=== PATIENT | male | born 2000 | race Caucasian/White ===

== ENCOUNTER 2021-09-22 16:29 | Emergency (ER) | payer SELFPAY ==
[~2021-09-22] VITALS: Ht 180.3 cm; Wt 126.0 kg
[2021-09-22 16:29] VITALS: BP 132/86
[2021-09-22] MEDS ORDERED: DEXAMETHASONE SOD PHOS 10 MG/ML VIAL. PO ONE (16:45)
[2021-09-22] MEDS ORDERED: ALBUTEROL SULFATE 8GM INHALER. INH ONE (16:45)
[2021-09-22] MEDS ORDERED: ALBUTEROL SULFATE 2.5 MG/3 ML NEBU. NEB ONE (16:45)
--- NOTE | 2021-09-22 16:46 | PHYS DOC ---
General Adult EDM: Chief Complaint: ASTHMA HPI: HPI: 20-year-old male presents with concern for asthma exacerbation. Patient started having some wheezing yesterday to get worse today. He ran out of his albuterol inhaler. He has mild intermittent asthma and only uses his albuterol inhaler sporadically. He has certain times of year where he uses it more than others. This tends to be 1 of those seasons. He denies fever or chills. He has no other complaints this time. Review of Systems: Review of Systems: Constitutional: Denies fever or chills Eyes: Denies change in visual acuity HENT: Denies nasal congestion or sore throat Respiratory: Wheezing, shortness of breath Cardiovascular: Denies chest pain or edema GI: Denies abdominal pain, nausea, vomiting, bloody stools or diarrhea : Denies dysuria Musculoskeletal: Denies back pain or joint pain Integument: Denies rash Neurologic: Denies headache, focal weakness or sensory changes Endocrine: Denies polyuria or polydipsia Lymphatic: Denies swollen glands Psychiatric: Denies depression or anxiety Allergies: Allergies: Allergies Coded Allergies Type Severity Reaction Last Updated Verified No Known Drug Allergies 09/22/21 No Physical Exam: PE: Constitutional: Well developed, well nourished, obese, no acute distress, non- toxic appearance. [] HENT: Normocephalic, atraumatic, bilateral external ears normal, oropharynx moist, no oral exudates, nose normal. [] Eyes: PERRLA, EOMI, conjunctiva normal, no discharge. [] Neck: Normal range of motion, no tenderness, supple, no stridor. [] Cardiovascular:Heart rate regular rhythm, no murmur [] Lungs & Thorax: Bilateral breath sounds with diffuse expiratory wheezing [] Abdomen: Bowel sounds normal, soft, no tenderness, no masses, no pulsatile ma sses. [] Skin: Warm, dry, no erythema, no rash. [] Back: No tenderness, no CVA tenderness. [] Extremities: No tenderness, no cyanosis, no clubbing, ROM intact, no edema. [] Neurologic: Alert and oriented X 3, normal motor function, normal sensory function, no focal deficits noted. [] Psychologic: Affect normal, judgement normal, mood normal. [] Current Patient Data: Vital Signs: Vital Signs Date Time Temp Pulse Resp B/P (MAP) Pulse Ox O2 Delivery O2 Flow Rate FiO2 09/22/21 16:29 81 20 132/86 (101) 97 Room Air EKG: EKG: [] Radiology/Procedures: Radiology/Procedures: [] Heart Score: C/O Chest Pain: N/A Risk Factors: Risk Factors: DM, Current or recent (<one month) smoker, HTN, HLP, family history of CAD, obesity. Risk Scores: Score 0 - 3: 2.5% MACE over next 6 weeks - Discharge Home Score 4 - 6: 20.3% MACE over next 6 weeks - Admit for Clinical Observation Score 7 - 10: 72.7% MACE over next 6 weeks - Early Invasive Strategies Course & Med Decision Making: Course & Med Decision Making Pertinent Labs and Imaging studies reviewed. (See chart for details) The patient has a nebulizer albuterol treatment in the ER as well as 10 mg of Decadron p.o. His lungs are completely clear at this time. I will discharge him with an albuterol MDI with spacer. I will also give him a prescription for the same. I do not believe he needs further steroid dosing. He is stable for discharge at this time. [] Dragon Disclaimer: Dragon Disclaimer: This electronic medical record was generated, in whole or in part, using a voice recognition dictation system. Departure Departure: Impression: Primary Impression: Asthma exacerbation Qualified Codes: J45.21 - Mild intermittent asthma with (acute) exacerbation Disposition: HOME / SELF CARE / HOMELESS Condition: STABLE Referrals: IVY PACK (PCP) Patient Instructions: Asthma, Adult, [id number] Scripts Albuterol Sulfate (VENTOLIN HFA INHALER) 18 Gm Hfa.aer.ad 1 PUFF IH PRN Q4HRS PRN for FOR ASTHMA, #1 INHALER 0 Refills Generic substitution of albuterol sulfate MDI is authorized. Prov: AARON DUNN DO 09/22/21 AARON DUNN DO Sep 22, 2021 16:46
[2021-09-22] MEDS ORDERED: DEXAMETHASONE 4 MG TABLET PO ONE (17:00)
[2021-09-22] MEDS ORDERED: ALBU2.5V8 IH (17:32)
== END 2021-09-22 17:36 | disposition home or self-care (01) ==
LOC: ER 16:29
DX: J45.21 Mild intermittent asthma with (acute) exacerbation (principal)
CPT/HCPCS: 94640; 99284; J1100; J7613; 94664

== ENCOUNTER 2021-10-19 02:59 | Emergency (ER) | payer SELFPAY ==
[~2021-10-19] VITALS: Ht 177.8 cm; Wt 127.3 kg
[~2021-10-19 02:59] MED LIST: ALBU2.5V8 IH
[2021-10-19 03:04] VITALS: BP 136/76
--- NOTE | 2021-10-19 03:06 | PHYS DOC ---
Past History Past Medical History: Asthma Past Surgical History: No Surgical History Alcohol Use: Occasionally Adult General Chief Complaint Chief Complaint: SHORTNESS OF BREATH HPI HPI Patient is a 20-year-old male presenting via EMS for shortness of breath. Patient has longstanding history of asthma. States it had not been bothering him until recently, reports change of the weather specifically past 2 months is caused increased flareups in his shortness of breath and wheezing. He was seen here at our facility September 22 and diagnosed with an asthma exacerbation, he was given an albuterol nebulizer and subsequent albuterol inhaler for which he went home with, no steroids. States he utilized the rescue inhaler appropriately which improved his symptoms and wheezes but reports he ran out of this inhaler recently. States that recent cold weather in fact that is mother had a stroke prompting father to restart smoking has caused relapse of his shortness of breath and wheezing. He does not have a primary care physician and no other asthma medications or inhalers. Ongoing wheezing concerned him prompting him to come to call EMS. On arrival, patient was found to be hemodynamically stable but was wheezing and so he was given x1 DuoNeb treatment in route which significantly improved his symptoms. On arrival, he continues to report shortness of breath and wheezing but does disclose that he feels much better since the DuoNeb treatment. No fever, no other known medical conditions, reports he is up-to-date on all vaccinations including flu and Covid, no tobacco abuse with rare alcohol abuse, no illicit drug use Review of Systems Review of Systems Fourteen body systems of review of systems have been reviewed. See HPI for pertinent positives and negative responses, other [place] all other systems are negative, non-pertinent or non-contributory Allergies Allergies Allergies Coded Allergies Type Severity Reaction Last Updated Verified No Known Drug Allergies 09/22/21 No Physical Exam Physical Exam Constitutional: Well developed, well nourished, no acute distress, non-toxic appearance. HENT: Normocephalic, atraumatic, bilateral external ears normal, oropharynx moist, postnasal drip present, no oral exudates, nose normal. Eyes: PERRLA, EOMI, conjunctiva normal, no discharge. Neck: Normal range of motion, no tenderness, supple, no stridor. Cardiovascular: Heart rate regular, sinus rhythm, no murmurs rubs or gallops Lungs & Thorax: No respiratory distress. No increased work of breathing. Patient does have diffuse wheezing bilaterally most prominent during end expiratory phases of respiration, dry nonproductive cough Abdomen: Bowel sounds normal, soft, no tenderness, no masses, no pulsatile masses. Nonsurgical abdomen, no peritoneal signs Skin: Warm, dry, no erythema, no rash. Back: No tenderness, no CVA tenderness. Extremities: No tenderness, no cyanosis, no clubbing, ROM intact, no edema. Neurologic: Alert and oriented X 3, grossly normal motor & sensory function, no focal deficits noted. Psychologic: Odd affect, judgement normal, mood normal. Current Patient Data Vital Signs Vital Signs Date Time Temp Pulse Resp B/P (MAP) Pulse Ox O2 Delivery O2 Flow Rate FiO2 10/19/21 03:04 97.7 111 24 136/76 (96) 97 Room Air Vital Signs Date Time Temp Pulse Resp B/P (MAP) Pulse Ox O2 Delivery O2 Flow Rate FiO2 10/19/21 03:04 97.7 111 24 136/76 (96) 97 Room Air EKG EKG [] Radiology/Procedures Radiology/Procedures XR CHEST 1V INDICATION: shob COMPARISON STUDY: None. FINDINGS: Lungs: Normal lung volume. No pulmonary mass or consolidation. The tracheobronchial tree and hilar structures are normal. Pleura: No pleural effusion or pneumothorax. Heart and Mediastinum: The cardiomediastinal silhouette is normal. The great vessels of the thorax are normal. Bones and Soft Tissues: The bones and soft tissues are within normal limits. IMPRESSION: No acute cardiopulmonary process. Electronically signed by: Da Schulte MD (10/19/2021 7:40 AM) [id number] Heart Score C/O Chest Pain: No Risk Factors: Risk Factors: DM, Current or recent (<one month) smoker, HTN, HLP, family history of CAD, obesity. Risk Scores: Risk Factors: DM, Current or recent (<one month) smoker, HTN, HLP, family history of CAD, obesity. Course & Med Decision Making Course & Med Decision Making ABCs unremarkable History physical exam and radiograph of chest nonconcerning for any emergent or surgical issues Patient likely suffering from asthma exacerbation triggered from recent cold weather versus increased smoke exposure from father Patient received a total of x2 DuoNeb treatments this evening with near complete reversal in symptoms. 60 mg p.o. prednisone administered in ER setting. Patient also given albuterol inhaler for home use in ER setting Discussed little indication for further diagnostic work-up, intervention or need for hospitalization. Did educate patent importance on establishing care with local primary care physician for outpatient follow-up and assistance obtaining inhalers, performing PFTs etc. Joint decision made to discharge patient home with strict return precautions that were understood and verbalized by patient. All questions and concerns addressed prior to ER departure in improved condition Dragon Disclaimer Dragon Disclaimer This electronic medical record was generated, in whole or in part, using a voice recognition dictation system. Departure Departure: Impression: Primary Impression: Asthma exacerbation Disposition: HOME / SELF CARE / HOMELESS Condition: IMPROVED Referrals: IVY PACK (PCP) Additional Instructions: You were seen for an asthma exacerbation. Your exacerbation was likely caused by local weather front versus increased secondhand smoke exposure. Any new medications today, please take those as prescribed as well. It may take a few days for the steroids to begin to work, but use albuterol as needed for the next few days to help with symptoms. It is imperative you contact a primary care physician of your liking in the local area to establish care and review ER visit today and for continued care in outpatient setting for chronic issue Return to the ED if you develop worsening cough, shortness of breath, fever > 101, chest pain, or any other new or concerning symptoms. You need to follow up with your primary care doctor as soon as possible as a severe asthma exacerbation can be fatal. Scripts Prednisone (PREDNISONE) 20 Mg Tablet 40 MG PO DAILY for asthma exacerbation for 4 Days, #8 TAB Prov: DANAE MANSFIELD DO 10/19/21 DANAE MANSFIELD DO Oct 19, 2021 03:06
[2021-10-19] MEDS ORDERED: predniSONE 20 MG TABLET ONE (03:17)
[2021-10-19] MEDS ORDERED: PRED20TA PO (03:21)
[2021-10-19] MEDS ORDERED: ALBUTEROL SULFATE 8GM INHALER. INH ONE (03:30)
[2021-10-19] MEDS ORDERED: IPRATRPIUM/ALBUTEROL 0.5/2.5MG 3 ML NEBU. NEB ONE (03:30)
[2021-10-19] MEDS ORDERED: predniSONE 20 MG TABLET PO ONE (03:30)
--- NOTE | 2021-10-19 07:42 | RAD ---
XR CHEST 1V INDICATION: shob COMPARISON STUDY: None. FINDINGS: Lungs: Normal lung volume. No pulmonary mass or consolidation. The tracheobronchial tree and hilar st ructures are normal. Pleura: No pleural effusion or pneumothorax. Heart and Mediastinum: The cardiomediastinal silhouette is normal. The great vessels of the thorax ar e normal. Bones and Soft Tissues: The bones and soft tissues are within normal limits. IMPRESSION: No acute cardiopulmonary process. Electronically signed by: Da Schulte MD (10/19/2021 7:40 AM) [id number]
== END 2021-10-19 03:56 | disposition home or self-care (01) ==
LOC: ER 02:59
DX: J45.901 Unspecified asthma with (acute) exacerbation (principal)
CPT/HCPCS: 71045; 94640; 99283; J7512

== ENCOUNTER 2021-12-25 15:06 | Emergency (ER) | payer SELFPAY ==
[~2021-12-25] VITALS: Ht 177.8 cm; Wt 127.3 kg
[~2021-12-25 15:06] MED LIST changes: +PRED20TA PO
[2021-12-25 15:16] VITALS: BP 157/85
[2021-12-25] MEDS ORDERED: IPRATRPIUM/ALBUTEROL 0.5/2.5MG 3 ML NEBU. ONE ×2 (15:16→15:28)
[2021-12-25] MEDS ORDERED: IPRATRPIUM/ALBUTEROL 0.5/2.5MG 3 ML NEBU. NEB ONE (15:30)
[2021-12-25] MEDS ORDERED: predniSONE 20 MG TABLET PO ONE (15:30)
[2021-12-25] MEDS ORDERED: PRED50TA PO (15:51)
[2021-12-25] MEDS ORDERED: ALBU2.5V8 IH (15:51)
[2021-12-25] MEDS ORDERED: IPRA3AMP29 NEB (15:51)
--- NOTE | 2021-12-25 15:51 | PHYS DOC ---
Past History Past Medical History: Asthma Additional Past Medical Histor: Wojciech lópez Past Surgical History: No Surgical History Alcohol Use: None General Adult EDM: Chief Complaint: ASTHMA HPI: HPI: Patient is a 21-year-old male coming in for asthma exacerbation started yesterday evening. Patient and family were remodeling the house and pulling up carpet. Does have cats in the home. Patient symptoms started last night and were worse this morning. Patient is out of his nebulizer medicines and inhaler. Has a nonproductive cough. Denies any fevers or GI complaints. No other sick contacts at home Review of Systems: Review of Systems: All other systems within normal limits except for as noted in the HPI Current Medications: Current Meds: Current Medications Medications (Trade) Dose Ordered Sig/Paola Start Time Stop Time Status Last Admin Dose Admin Albuterol/ Ipratropium (Duoneb) 3 ml STK-MED ONCE 12/25/21 15:28 12/25/21 15:28 DC Prednisone (Prednisone) 60 mg 1X ONCE 12/25/21 15:30 12/25/21 15:32 DC Allergies: Allergies: Allergies Coded Allergies Type Severity Reaction Last Updated Verified No Known Drug Allergies 09/22/21 No Physical Exam: PE: Constitutional: Well developed, well nourished, no acute distress, non-toxic appearance. [] HENT: Normocephalic, atraumatic, bilateral external ears normal, nose normal. [] Eyes: PERRLA, conjunctiva normal, no discharge. [] Neck: No rigidity, supple, no stridor. [] Cardiovascular: Regular rate and rhythm, brisk cap refill [] Lungs & Thorax: Non labored symmetric respirations, no tachypnea or respiratory distress. Bilateral wheezes [] Abdomen: Soft, nondistended. Skin: Warm, dry, no erythema, no rash. [] Back: Unremarkable Extremities: No deformities, range of motion grossly intact, no lower extremity edema [] Neurologic: Alert and oriented X 3, no focal deficits noted. [] Psychologic: Affect normal, judgement normal, mood normal. [] Current Patient Data: Vital Signs: Vital Signs Date Time Temp Pulse Resp B/P (MAP) Pulse Ox O2 Delivery O2 Flow Rate FiO2 12/25/21 15:42 93 Room Air 12/25/21 15:16 98.1 113 28 157/85 (109) EKG: EKG: [] Radiology/Procedures: Radiology/Procedures: [] Heart Score: C/O Chest Pain: No Risk Factors: Risk Factors: DM, Current or recent (<one month) smoker, HTN, HLP, family history of CAD, obesity. Risk Scores: Score 0 - 3: 2.5% MACE over next 6 weeks - Discharge Home Score 4 - 6: 20.3% MACE over next 6 weeks - Admit for Clinical Observation Score 7 - 10: 72.7% MACE over next 6 weeks - Early Invasive Strategies Course & Med Decision Making: Course & Med Decision Making Patient improved after 2 DuoNeb treatments. Dragon Disclaimer: Dragon Disclaimer: This electronic medical record was generated, in whole or in part, using a voice recognition dictation system. Departure Departure: Impression: Primary Impression: Asthma exacerbation Disposition: HOME / SELF CARE / HOMELESS Condition: IMPROVED Referrals: IVY PACK (PCP) Patient Instructions: Asthma, Adult Scripts Ipratropium/Albuterol Sulfate (DUONEB 0.5-3(2.5) MG/3 ML) 3 Ml Ampul.neb 3 ML NEB QID PRN for WHEEZING for 10 Days, #40 EACH Prov: NIDA JACK MD 12/25/21 Albuterol Sulfate (PROAIR HFA INHALER) 8.5 Gm Hfa.aer.ad 2 PUFF IH PRN Q4-6HRS PRN for wheezing for 21 Days, #1 INHALER 0 Refills Prov: NIDA JACK MD 12/25/21 Prednisone (PREDNISONE) 50 Mg Tablet 1 TAB PO DAILY for steroid for 4 Days, #4 TAB You received this medication in the emergency room today. You will starting your next dose tomorrow. Prov: NIDA JACK MD 12/25/21 NIDA JACK MD Dec 25, 2021 15:51
== END 2021-12-25 16:00 | disposition home or self-care (01) ==
LOC: ER 15:06
DX: J45.901 Unspecified asthma with (acute) exacerbation (principal)
CPT/HCPCS: 94640; 99284

== ENCOUNTER 2022-01-19 10:30 | Emergency (ER) | payer SELFPAY ==
[~2022-01-19] VITALS: Ht 180.3 cm; Wt 113.0 kg
[~2022-01-19 10:30] MED LIST changes: +IPRA3AMP29 NEB; +PRED50TA PO
[2022-01-19] MEDS ORDERED: DEXAMETHASONE SOD PHOS 10 MG/ML VIAL. IM ONE (10:45)
[2022-01-19] MEDS ORDERED: IPRATRPIUM/ALBUTEROL 0.5/2.5MG 3 ML NEBU. NEB ONE ×2 (10:45→11:00)
--- NOTE | 2022-01-19 11:20 | RAD ---
XR CHEST 1V History: Reason: asthma exacerbation / Spl. Instructions: / History: Comparison: October 19, 2021 Findings: No consolidation or pleural effusion. Normal heart size. No pneumothorax. Impression: 1. No acute cardiopulmonary process. Electronically signed by: Kyle Overton DO (01/19/2022 11:18 AM) [id number]
[2022-01-19 11:36] VITALS: BP 118/64
[2022-01-19] MEDS ORDERED: LORazepam 1 MG TABLET PO ONE (11:45)
[2022-01-19] MEDS ORDERED: PRED50TA PO (12:43)
[2022-01-19] MEDS ORDERED: IPRA3AMP29 NEB (12:43)
[2022-01-19] MEDS ORDERED: ALBU2.5V8 IH (12:43)
[2022-01-19] MEDS ORDERED: FLUT16SP21 NS (12:43)
[2022-01-19] MEDS ORDERED: NEBU-132 MC (12:43)
--- NOTE | 2022-01-19 12:43 | PHYS DOC ---
Past History Past Medical History: Asthma Additional Past Medical Histor: Erb's palsey, seasonal allergies Past Surgical History: No Surgical History Alcohol Use: None General Adult EDM: Chief Complaint: ASTHMA HPI: HPI: Patient is a 21 year old male with past medical history including seasonal allergies and asthma who presents with asthma exacerbation. Patient's dad is at bedside and aids in providing history. Dad states that patient had reactive airway disease as an and has not had any issues with asthma for period of 10-12 years. Recently, within the past few months, patient has had several bouts of shortness of breath that they believed were related to seasonal allergies. Patient takes daily Zyrtec and Gina on days where "it's bad." Patient does not have an inhaler nor nebulizer at home. Neither patient or dad have any other complaints at this time. Review of Systems: Review of Systems: Constitutional: Denies fever, chills or generalized weakness Eyes: Denies change in visual acuity, visual field deficits or discharge HENT: Denies ear pain, nasal congestion or sore throat Respiratory: See HPI Cardiovascular: Denies chest pain, palpitations or edema GI: Denies abdominal pain, nausea, vomiting, bloody stools or diarrhea : Denies dysuria or hematuria Musculoskeletal: Denies back pain or joint pain Integument: Denies rash or other skin lesion Neurologic: Denies headache, focal weakness or sensory changes Current Medications: Current Meds: Current Medications Medications (Trade) Dose Ordered Sig/Paola Start Time Stop Time Status Last Admin Dose Admin Albuterol/ Ipratropium (Duoneb) 3 ml 1X ONCE 01/19/22 11:00 01/19/22 11:01 DC 01/19/22 10:50 3 ML Dexamethasone Sodium Phosphate (Decadron) 10 mg 1X ONCE 01/19/22 10:45 01/19/22 10:46 DC 01/19/22 10:45 10 MG Lorazepam (Ativan) 1 mg 1X ONCE 01/19/22 11:45 01/19/22 11:49 DC 01/19/22 11:45 1 MG Allergies: Allergies: Allergies Coded Allergies Type Severity Reaction Last Updated Verified No Known Drug Allergies 09/22/21 No Physical Exam: PE: Constitutional: Obese, slightly disheveled, patient appears anxious with increased work of breathing, non-toxic appearance. HENT: Normocephalic, atraumatic, bilateral external ears normal, oropharynx moist, no oral exudates, nose normal. Eyes: EOMI, conjunctiva normal, no discharge. Neck: Normal range of motion, no tenderness, supple, no stridor. Cardiovascular: Elevated heart rate with regular rhythm. No obvious murmurs, rubs or gallops. Lungs & Thorax: Left-sided inspiratory wheezing, diffuse expiratory wheezing status post 2 DuoNebs. Skin: Warm, dry, no erythema, no rash, no cyanosis. Neurologic: Alert and oriented x4, normal motor function, normal sensory function, no focal deficits noted. Current Patient Data: Vital Signs: Vital Signs Date Time Temp Pulse Resp B/P (MAP) Pulse Ox O2 Delivery O2 Flow Rate FiO2 01/19/22 11:36 122 22 118/64 (82) 95 Room Air 01/19/22 11:06 134 22 122/64 (83) 90 Room Air 01/19/22 10:43 97.6 145 22 136/59 (84) 96 Room Air Radiology/Procedures: Radiology/Procedures: PROCEDURE: CHEST AP ONLY XR CHEST 1V History: Reason: asthma exacerbation / Spl. Instructions: / History: Comparison: October 19, 2021 Findings: No consolidation or pleural effusion. Normal heart size. No pneumothorax. Impression: 1. No acute cardiopulmonary process. Electronically signed by: Kyle Overton DO (01/19/2022 11:18 AM) [id number] Heart Score: C/O Chest Pain: No Course & Med Decision Making: Course & Med Decision Making Pertinent Labs and Imaging studies reviewed. (See chart for details) Patient is a 21-year-old male who presents with asthma exacerbation. As a child, patient suffers from reactive airway disease/asthma, but for years had not had any problems. Over the past few months, patient has been seen multiple times for asthma exacerbation. Patient had labored breathing on exam. After 2 DuoNeb's, his work of breathing significantly improved, however still appears anxious. He was provided with 1 p.o. Ativan, which she was instructed to chew. On reevaluation after medication administration, he appeared much more relaxed and his heart rate had come down significantly. Patient was instructed to follow-up with his primary care doctor for possible PFTs. Advised patient that he may be referred to pulmonology rather than having this testing done with his primary care provider. Strict return precautions were provided. Prescriptions for nebulizer, breathing treatments, albuterol inhaler, Flonase and 5-day course of prednisone for future exacerbation provided. Patient and his father at bedside understand and are agreeable to discharge plan. Nadeem Disclaimer: Nadeem Disclaimer: This electronic medical record was generated, in whole or in part, using a voice recognition dictation system. Departure Departure: Impression: Primary Impression: Asthma exacerbation attacks Qualified Codes: J45.901 - Unspecified asthma with (acute) exacerbation Additional Impression: Seasonal allergies Disposition: HOME / SELF CARE / HOMELESS Condition: IMPROVED Referrals: IVY PACK (PCP) Patient Instructions: Allergy Skin Testing, Asthma, Adult, [id number], Pulmonary Function Tests-Brief Additional Instructions: EMERGENCY DEPARTMENT GENERAL DISCHARGE INSTRUCTIONS Thank you for coming to [facility] (ED) today and trusting us with you care. We trust that you had a positive experience in our Emergency Department. If you wish to speak to the department management, you may call the director at [phone]. YOUR FOLLOW UP INSTRUCTIONS ARE FOLLOWS: 1. Follow up with your primary care doctor. If you do not have a primary doctor, please ask for a resource list of physicians or clinics that may be able to assist you with follow up care. 2. The emergency provider has interpreted your imaging studies, if any were ordered. The radiology health safety specialist also reviewed them. If there is a change in the findings, you will be notified in 48 hours when at all possible. 3. If a lab test or culture has been done, your results will be reviewed and you will be notified if you need a change in treatment. 4. Follow instructions verbalized to you and refer to the printouts if needed. ADDITIONAL INSTRUCTIONS AND INFORMATION: 1. Your care today has been supervised by a physician who is specially trained in emergency care. Many problems require more than one evaluation for a complete diagnosis and treatment. We recommend that you schedule your follow up appointment as recommended to ensure complete treatment of you illness or injury. If you are unable to obtain follow up care and continue to have a problem, or if your condition worsens, we recommend that you return to the ED. 2. We are not able to safely determine your condition over the phone nor are we able to give sound medical advice over the phone. For these safety reasons, if you call for medical advice we will ask you to come to the ED for further evaluation. 3. If you have any questions regarding these discharge instructions please call the ED at [phone]. SAFETY INFORMATION: In the interest of safety, wellness, and injury prevention; we encourage you to wear your seat belt, if you smoke; quite smoking, and we encourage family to use a protective helmet for bicycling and other sporting events that present an increased risk for head injury. IF YOUR SYMPTOMS WORSEN OR NEW SYMPTOMS DEVELOP, OR YOU HAVE CONCERNS ABOUT YOUR CONDITION; OR IF YOUR CONDITION WORSENS WHILE YOU ARE WAITING FOR YOUR FOLLOW UP APPOINTMENT; EITHER CONTACT YOUR PRIMARY CARE DOCTOR, THE PHYSICIAN WHOSE NAME AND NUMBER YOU WERE GIVEN, OR RETURN TO THE ED IMMEDIATELY. Scripts Prednisone (PREDNISONE) 50 Mg Tablet 1 TAB PO DAILY for asthma exacerbation, #5 TAB Prov: CORNELIUS BROOKS 01/19/22 Fluticasone Propionate (FLUTICASONE PROPIONATE NASAL SPRAY) 16 Gm [place].susp 2 SPR NS DAILY for allergies, #1 INHALER 0 Refills Prov: CORNELIUS BROOKS 01/19/22 Albuterol Sulfate (PROAIR HFA INHALER) 8.5 Gm Hfa.aer.ad 2 PUFF IH PRN Q4-6HRS PRN for wheezing for 21 Days, #1 INHALER 0 Refills Prov: CORNELIUS BROOKS 01/19/22 Ipratropium/Albuterol Sulfate (DUONEB 0.5-3(2.5) MG/3 ML) 3 Ml Ampul.neb 3 ML NEB QID for wheezing, #12 EACH Use 1 nebulizer treatment as needed for wheezing. May repeat dose after 20 minutes. After 3 nebulizer treatments, if symptoms are not improved, please seek further care. Prov: CORNELIUS BROOKS 01/19/22 Nebulizer and Compressor (Easy Neb Compressor Nebulizer) 1 Each Each EACH MC PRN 2-3XD PRN for WHEEZING, #1 0 Refills Use as needed for wheezing. Follow nebulizer medication instructions. Prov: CORNELIUS BROOKS 01/19/22 CORNELIUS BROOKS Jan 19, 2022 12:43
== END 2022-01-19 12:45 | disposition home or self-care (01) ==
LOC: ER 10:30
DX: J45.901 Unspecified asthma with (acute) exacerbation (principal)
CPT/HCPCS: 71045; 94640; 96372; 99284; J1100